=== PATIENT | male | born 1995 | race Caucasian/White ===

== ENCOUNTER 2019-05-26 13:29 | Emergency (ER) | payer OTHER, BC ==
[~2019-05-26] VITALS: Ht 175.3 cm; Wt 72.7 kg
[2019-05-26 13:37] VITALS: BP 164/62
[2019-05-26] MEDS ORDERED: CYCL-1 PO (13:43)
== END 2019-05-26 13:48 | disposition home or self-care (01) ==
LOC: ER 13:30
DX: S46.911A Strain of unspecified muscle, fascia and tendon at shoulder and upper arm level, right arm, initial encounter (principal); M62.838 Other muscle spasm; Z98.890 Other specified postprocedural states; Z79.899 Other long term (current) drug therapy; V89.2XXA Person injured in unspecified motor-vehicle accident, traffic, initial encounter; Y93.89 Activity, other specified; Y92.410 Unspecified street and highway as the place of occurrence of the external cause; Y99.8 Other external cause status
CPT/HCPCS: 99283